=== PATIENT | female | born 1950 | race Caucasian/White ===

== ENCOUNTER 2017-06-03 05:38 | Day surgery (SDC) | payer MEDICARE ==
[~2017-06-03] VITALS: Ht 175.3 cm; Wt 69.3 kg
[2017-06-03] MEDS ORDERED: LACTATED RINGERS 1,000 ML IV SCH (06:12)
[2017-06-03] MEDS ORDERED: BUPIVACAINE/PF 0.5% ONE (06:18)
[2017-06-03] MEDS ORDERED: methylPREDNISolone*ACETATE* 80 MG/ML ONE (06:18)
[2017-06-03] MEDS ORDERED: EPINEPHRINE 1 MG/ML, 1ML ONE (06:19)
[2017-06-03] MEDS ORDERED: ROPIvacaine/PF 0.5%, 20 ML ONE (06:19)
[2017-06-03] MEDS ORDERED: GABAPENTIN 300 MG CAPSULE PO ONE (06:30)
[2017-06-03] MEDS ORDERED: OxyconTIN ER 10 MG TAB.ER PO ONE (06:30)
[2017-06-03] MEDS ORDERED: ACETAMINOPHEN 500 MG TABLET PO ONE (06:30)
[2017-06-03] MEDS ORDERED: MIDAZOLAM 1 MG/ML, 2ML ONE (06:34)
[2017-06-03] MEDS ORDERED: FENTANYL PF 100 MCG/2ML ONE ×2 (06:34→07:13)
[2017-06-03] MEDS ORDERED: atorvastatin PO (06:40)
[2017-06-03] MEDS ORDERED: levoxyl PO (06:40)
[2017-06-03 06:41] VITALS: BP 116/77
[2017-06-03] MEDS ORDERED: PROPOFOL 10 MG/ML, 20ML ONE (06:52)
[2017-06-03] MEDS ORDERED: SUCCINYLCHOLINE 20 MG/ML, 10ML ONE (06:52)
[2017-06-03] MEDS ORDERED: ACETAMINOPHEN 650 MG/20.3 ML UDC ONE (07:13)
[2017-06-03] MEDS ORDERED: OXYcodone 5 MG/5 ML ORAL.SOL UDC ONE (07:14)
[2017-06-03] MEDS: FENTANYL PF 100 MCG/2ML IV PRN ×2 (07:15→07:25)
[2017-06-03] MEDS ORDERED: HYDROmorphone 2 MG/ML, 1ML ONE (07:26)
[2017-06-03] MEDS ORDERED: hydrALAzine 20 MG/ML, 1ML IV PRN (07:30)
[2017-06-03] MEDS ORDERED: METOCLOPRAMIDE 5 MG/ML, 2ML IV PRN (07:30)
[2017-06-03] MEDS ORDERED: LABETALOL 5MG/ML, 20ML IV PRN (07:30)
[2017-06-03] MEDS ORDERED: OXYcodone 5 MG/5 ML ORAL.SOL UDC PO PRN (07:30)
[2017-06-03] MEDS ORDERED: ACETAMINOPHEN 325 MG TABLET PO PRN (07:30)
[2017-06-03] MEDS ORDERED: ONDANSETRON 2MG/ML, 2ML IVPush PRN (07:30)
[2017-06-03] MEDS: HYDROmorphone 1 MG/ML, 1ML IV PRN ×2 (07:34→07:46)
== END 2017-06-03 09:40 | disposition home or self-care (01) ==
LOC: OUT 05:38
PROVIDERS: ATTEND Orthopaedic Surgery
DX: M24.662 Ankylosis, left knee (principal)
CPT/HCPCS: 27570; 73564; J0330; J1170; J2250; J2704; J3010; J7120; J0171; J2795; J3490; J1040